=== PATIENT | male | born 1975 | race Two or more races ===

== ENCOUNTER 2018-09-12 21:17 | Emergency (ER) | payer OTHER ==
[~2018-09-12] VITALS: Ht 162.6 cm; Wt 68.0 kg
[2018-09-12 23:00] VITALS: BP 145/82
== END 2018-09-13 01:05 | disposition home or self-care (01) ==
LOC: EEVIPCON 21:24 → ER 21:24
DX: S43.101A Unspecified dislocation of right acromioclavicular joint, initial encounter (principal); R51 Headache; Y08.89XA Assault by other specified means, initial encounter; Y93.89 Activity, other specified; Y92.89 Other specified places as the place of occurrence of the external cause; Y99.8 Other external cause status
CPT/HCPCS: 29105; 70450; 70486; 73000